=== PATIENT | male | born 1970 | race Caucasian/White ===

== ENCOUNTER 2024-07-17 13:32 | Observation (INO) ==
[2024-07-17] MEDS: Ondansetron 4 mg VIAL 2 MG/ML 2 ml VIAL IV ONE (14:26)
[2024-07-17 14:31] LABS: ABS Lymphocytes 1.4 10^3/uL (1.0-4.8); ABS Monocytes 0.6 10^3/uL (0.0-1.1); ABS Neutrophils 13.4 10^3/uL (1.5-7.6); ABS Nucleated RBC 0.02 10^3/ul; Eosinophil % 0.1 %; Hematocrit 41.3 % (38-53); Hemoglobin 14.6 g/dL (13.2-16.3); Lymphocyte % 9.3 %; Mean Corpuscular Hemoglobin 29.1 pg (27-33); Mean Corpuscular Hgb Conc 35.4 g/dL (31-36); Mean Corpuscular Volume 82.3 fL (80-97); Mean Platelet Volume 7.4 fL (7.5-11.2); Nucleated Red Blood Cells % 0.1 %/100WBC (0.0-0.8); Platelet Count 339 10^3/uL (150-450); Red Blood Count 5.02 10^6/uL (4.06-5.63); Red Cell Distribution Width 13.3 % (12-17); White Blood Count 15.5 10^3/uL (3.6-10.2)
[2024-07-17 14:42] LABS: Activated Partial Thrombo Time 28.8 seconds (26.0-38.0); INR 1.12 (0.85-1.14)
[2024-07-17] MEDS: Iodixanol (CONTRAST) 320 MG/ML 100 ML SDV IV ONE (14:46)
[2024-07-17 15:25] LABS: Albumin 4.4 g/dL (3.2-5.2); Albumin/Globulin Ratio 1.9 (1-3); Calcium 9.8 mg/dL (8.6-10.3); Creatinine, Serum 1.05 mg/dL (0.67-1.17); Direct Bilirubin 0.1 mg/dL (0.03-0.18); Globulin 2.3 g/dL (2-4); HDL Cholesterol 43.1 mg/dL; Indirect Bilirubin 0.7 mg/dL (0.3-1.0); Potassium 2.9 mmol/L (3.5-5.0); Total Bilirubin 0.8 mg/dL (0.2-1.0); Total Protein 6.7 g/dL (6.4-8.9); eGFR CKD-EPI 85.4 (>60)
[2024-07-17 16:01] LABS: High Sensitivity Troponin 1 Hr 3 pg/mL (<20)
[2024-07-17] MEDS: KCL 20 MEQ/100 ML IVPREMIX 20 MEQ/100 ML BAG IV SCH (16:16)
[2024-07-17] MEDS: Lactated Ringers 1000 ml BAG 1,000 ML IV ONE (20:24)
[2024-07-18] MEDS ORDERED: Ondansetron 4 mg VIAL 2 MG/ML 2 ml VIAL ONE (00:15)
[2024-07-18] MEDS ORDERED: Sulfur Hexaflouride MICROSPHR 25 MG VIAL IV PRN (00:17)
[2024-07-18] MEDS: Ondansetron 4 mg VIAL 2 MG/ML 2 ml VIAL IV ONE (00:18)
[2024-07-18] MEDS: Enoxaparin 40 MG/0.4 ML SYR SUBCUT SCH (01:09)
[2024-07-18] MEDS: Potassium Chlor 20 meq TAB.ER PO ONE (01:23)
[2024-07-18 01:31] LABS: ABS Lymphocytes 1.3 10^3/uL (1.0-4.8); ABS Monocytes 0.6 10^3/uL (0.0-1.1); ABS Neutrophils 12.9 10^3/uL (1.5-7.6); ABS Nucleated RBC 0.01 10^3/ul; Eosinophil % 0.1 %; Hemoglobin 12.9 g/dL (13.2-16.3); Mean Corpuscular Hemoglobin 29.5 pg (27-33); Mean Corpuscular Hgb Conc 35.9 g/dL (31-36); Mean Corpuscular Volume 82.2 fL (80-97); Mean Platelet Volume 7.3 fL (7.5-11.2); Platelet Count 310 10^3/uL (150-450); Red Blood Count 4.38 10^6/uL (4.06-5.63); White Blood Count 14.9 10^3/uL (3.6-10.2)
[2024-07-18 02:13] LABS: Calcium 8.7 mg/dL (8.6-10.3); Creatinine, Serum 0.84 mg/dL (0.67-1.17); Magnesium 1.5 mg/dL (1.9-2.7); Potassium 6.6 mmol/L (3.5-5.0); eGFR CKD-EPI 104.9 (>60)
[2024-07-18 02:45] LABS: Urine Appearance Clear; Urine Bilirubin Negative (Negative); Urine Blood Negative (Negative); Urine Color Yellow; Urine Glucose Negative (Negative); Urine Ketones 2+ (Negative); Urine Nitrite Negative (Negative); Urine Protein Trace (Negative); Urine Urobilinogen Negative (Negative); Urine pH 6.5 (5.0-8.0)
[2024-07-18] MEDS: Lactated Ringers 1000 ml BAG 1,000 ML IV ONE ×2 (03:19→05:12)
[2024-07-18] MEDS: KCL 20 MEQ/100 ML IVPREMIX 20 MEQ/100 ML BAG IV SCH (06:23)
[2024-07-18] MEDS: Magnesium Sulf 4 GM/100 ML IV 4,000 MG/100 ML BAG IVPB ONE (06:31)
[2024-07-18] MEDS: Ondansetron 4 mg VIAL 2 MG/ML 2 ml VIAL IV PRN (11:19)
[2024-07-19 07:20] LABS: ABS Eosinophils 0.1 10^3/uL (0.0-0.5); ABS Lymphocytes 1.8 10^3/uL (1.0-4.8); ABS Monocytes 0.5 10^3/uL (0.0-1.1); ABS Neutrophils 6.6 10^3/uL (1.5-7.6); ABS Nucleated RBC 0.01 10^3/ul; Hematocrit 39.1 % (38-53); Hemoglobin 13.7 g/dL (13.2-16.3); Lymphocyte % 19.8 %; Mean Corpuscular Hemoglobin 29.3 pg (27-33); Mean Corpuscular Volume 83.8 fL (80-97); Mean Platelet Volume 7.4 fL (7.5-11.2); Nucleated Red Blood Cells % 0.1 %/100WBC (0.0-0.8); Platelet Count 279 10^3/uL (150-450); Red Blood Count 4.67 10^6/uL (4.06-5.63); Red Cell Distribution Width 13.3 % (12-17)
[2024-07-19 07:35] LABS: Calcium 8.8 mg/dL (8.6-10.3); Creatinine, Serum 0.88 mg/dL (0.67-1.17); Potassium 3.5 mmol/L (3.5-5.0); eGFR CKD-EPI 103.5 (>60)
[2024-07-19 13:31] LABS: Protein C Activity 106 % (70 - 150)
[2024-07-19 14:18] LABS: LAC APTT 28 sec (25 - 37); LAC INR 1.2 (0.9-1.1); Prothrombin Time(LAC) 13.4 sec (9.4 - 12.5)
[2024-07-19 14:35] LABS: Protein S Activity, P 84 % (65-150)
[2024-07-19] MEDS: Polyethylene Glycol 3350 17 GM PACKET PO PRN (17:54)
[2024-07-20 14:56] VITALS: BP 137/92
[2024-07-21 08:55] LABS: Factor V Leiden Mutation Negative (Negative); Prothrombin 20210 Mutation Negative (Negative)
== END 2024-07-20 18:00 | disposition home or self-care (01) ==
LOC: EDHOLD 13:32 → ED 13:32 → MED 07-18 04:06
PROVIDERS: ADMIT Internal Medicine; ATTEND Internal Medicine